=== PATIENT | female | born 1980 | race Two or more races ===

== ENCOUNTER → 2023-02-11 | Outpatient (CLI) | payer OTHER ==
[~2023-02-11] MED LIST: ACET1TAB37 PO; CELE1CAP4 PO; GABA-1171 PO; GABA600T4 PO; IRON27TA2 PO; PROHANCE 279.3MG/ML 15ML VIAL As Ordered ONE; TRAM50TA2 PO
== END ==
LOC: M RAD 08:08
PROVIDERS: ATTEND Obstetrics & Gynecology
DX: D25.9 Leiomyoma of uterus, unspecified (principal); N93.9 Abnormal uterine and vaginal bleeding, unspecified; D64.9 Anemia, unspecified

== ENCOUNTER 2023-05-07 08:09 | Outpatient (CLI) | payer OTHER ==
[~2023-05-07] VITALS: Ht 167.6 cm; Wt 68.5 kg
[~2023-05-07 08:09] MED LIST changes: +ACETAMINOPHEN TAB 650MG DOSE (2X325MG) PO ONE; -PROHANCE 279.3MG/ML 15ML VIAL As Ordered ONE; +dexAMETHasone 20MG/5ML VIAL IV ONE; +diphenhydrAMINE 25MG CAP PO ONE
[2023-05-07 08:20] VITALS: BP 124/76; O2SAT 100
[2023-05-07] MEDS: IRON SUCROSE 300 MG in NS 250 ML OVER 90 MIN. IV ONE (08:27)
[2023-05-07 10:20] VITALS: BP 110/68; O2SAT 100
== END 2023-05-07 12:25 ==
LOC: M INFU 08:09
PROVIDERS: ATTEND Internal Medicine Hematology & Oncology
DX: D50.9 Iron deficiency anemia, unspecified (principal); Z88.6 Allergy status to analgesic agent; Z88.1 Allergy status to other antibiotic agents; Z88.8 Allergy status to other drugs, medicaments and biological substances
CPT/HCPCS: 96365; 96366; J1756

== ENCOUNTER → 2023-12-01 | Outpatient (CLI) | payer OTHER ==
[~2023-12-01] MED LIST changes: -ACETAMINOPHEN TAB 650MG DOSE (2X325MG) PO ONE; +GABA-1490 PO; -GABA600T4 PO; +PROHANCE 279.3MG/ML 15ML VIAL ONE; -dexAMETHasone 20MG/5ML VIAL IV ONE; -diphenhydrAMINE 25MG CAP PO ONE
== END ==
LOC: M PLAIMG 09:00
PROVIDERS: ATTEND Plastic Surgery Surgery of the Hand
DX: T85.44XA Capsular contracture of breast implant, initial encounter (principal); N64.4 Mastodynia; Y83.1 Surgical operation with implant of artificial internal device as the cause of abnormal reaction of the patient, or of later complication, without mention of misadventure at the time of the procedure
CPT/HCPCS: A9576; C8908

== ENCOUNTER → 2024-06-13 | Outpatient (CLI) | payer OTHER ==
[~2024-06-13] MED LIST changes: +IRON65TA2 PO; -PROHANCE 279.3MG/ML 15ML VIAL ONE
== END ==
LOC: M WHC 13:17
PROVIDERS: ATTEND Physician Assistant
DX: N95.9 Unspecified menopausal and perimenopausal disorder (principal)

== ENCOUNTER → 2024-06-27 | Outpatient (CLI) | payer OTHER ==
[~2024-06-27] MED LIST changes: +PROHANCE 279.3MG/ML 15ML VIAL ONE
== END ==
LOC: M PLAIMG 10:57
PROVIDERS: ATTEND Obstetrics & Gynecology
DX: D25.9 Leiomyoma of uterus, unspecified (principal)